=== PATIENT | female | born 1945 | race Caucasian/White ===

== ENCOUNTER 2016-09-24 11:41 | Emergency (ER) | payer OTHER ==
[~2016-09-24] VITALS: Ht 157.5 cm; Wt 112.9 kg
[2016-09-24] MEDS ORDERED: NORCO 5/3251 TABLET PO (14:16)
[2016-09-24] MEDS ORDERED: PREDNISONE10 MG PO (14:16)
[2016-09-24 14:59] VITALS: BP 106/55
== END 2016-09-24 15:00 | disposition home or self-care (01) ==
LOC: EME 11:41
DX: M17.11 Unilateral primary osteoarthritis, right knee (principal); M19.041 Primary osteoarthritis, right hand; Z87.891 Personal history of nicotine dependence; E11.9 Type 2 diabetes mellitus without complications; E78.5 Hyperlipidemia, unspecified; I10 Essential (primary) hypertension
CPT/HCPCS: 73140; 73564; 99281; 99283